=== PATIENT | female | born 1970 | race Caucasian/White ===

== ENCOUNTER 2016-08-03 22:22 | Emergency (ER) ==
[2016-08-03 23:20] LABS: URINE SOURCE CLEAN CATCH
[2016-08-03 23:41] LABS: BILIRUBIN URINE NEGATIVE (NEGATIVE); BLOOD URINE 1+ (NEGATIVE); CLARITY CLEAR (CLEAR); COLOR YELLOW; GLUCOSE URINE NEGATIVE (NEGATIVE); LEUKOCYTES URINE NEGATIVE (NEGATIVE); NITRITE URINE NEGATIVE (NEGATIVE); PH URINE 6.5; PROTEIN URINE TRACE mg/dL (NEGATIVE); UROBILINOGEN URINE NORMAL
--- NOTE | 2016-08-04 01:37 | PROVIDER DOCUMENTATION ---
HPI-Female /OB/Breast - General Chief Complaint: UTI Symptoms Stated Complaint: UTI Time Seen by Provider: 08/04/16 01:31 Source: reports: patient Allergies/Adverse Reactions: Patient Allergies Allergy/AdvReac Type Severity Reaction Status Date / Time prochlorperazine edisylate * Allergy Severe seizure Verified 08/04/16 01:13 [From Compazine] prochlorperazine maleate * Allergy Severe seizure Verified 08/04/16 01:13 [From Compazine] promethazine HCl * Allergy Severe seizure Verified 08/04/16 01:13 [From Phenergan] ketorolac tromethamine * Allergy Intermediate NAUSEA Verified 08/04/16 01:13 [From Toradol] Sulfa (Sulfonamide Allergy Intermediate ITCHING Verified 08/04/16 01:13 Antibiotics) Home Medications: Home Medication List Medication Instructions Recorded Confirmed Last Taken Type Estradiol [Estrace] 1 mg PO DAILY #30 tablet 11/16/14 08/03/16 Rx Lisinopril/Hydrochlorothiazide 37.5 08/03/16 08/02/16 History [Zestoretic 20-25 mg Tablet] Phenazopyridine HCl [Azo Standard] 95 mg 08/03/16 08/03/16 History Nitrofurantoin Monohyd/M-Cryst 100 mg PO BID #20 capsule 08/04/16 Unknown Rx [Macrobid 100 mg Capsule] Phenazopyridine HCl [Pyridium] 200 mg PO ONCE #6 tablet 08/04/16 Unknown Rx - History of Present Illness-Female /OB Does patient report she is ?: No Location of complaint: reports: other (back) Radiation: reports: none Quality of Pain: reports: aching Severity in ED: reports: mild Onset/Duration: reports: 3 days ago Timing: reports: still present Urinary Symptoms: reports: dysuria, frequency Associated Symptoms: reports: denies symptoms Similar Symptoms Previously?: No Recently seen or treated by another doctor?: No Review of Systems - Adult - REVIEW OF SYSTEMS - ADULT Constitutional: denies: chills, fever Eyes: reports: no symptoms reported Ears, Nose, Mouth & Throat: reports: no symptoms reported Cardiovascular: reports: no symptoms reported Respiratory: reports: no symptoms reported Gastrointestinal: reports: no symptoms reported Genitourinary: reports: dysuria, frequency Musculoskeletal: reports: back pain. denies: muscle weakness Integumentary: reports: no symptoms reported Neurological: reports: no symptoms reported Psychiatric: reports: no symptoms reported Endocrine: reports: no symptoms reported Hematologic/Lymphatic: reports: no symptoms reported Allergic/Immunologic: reports: no symptoms reported All Other Systems: Reviewed and Negative Past History - Adult - PAST MEDICAL HISTORY-ADULT Cardiovascular: reports: HTN Psychiatric: reports: anxiety, depression - PRIOR SURGERIES/PROCEDURES Surgical/Procedure History: reports: cholecystectomy, hysterectomy, back/neck ( cervical fusion ) - IMMUNIZATION STATUS Childhood Immunizations: See Nurse Assessment Flu Vaccine: See Nurse Assessment - FAMILY HISTORY Family History: reviewed, not pertinent Physical Exam-General - PHYSICAL EXAM-ADULT Initial Vital Signs Reviewed: Yes - CONSTITUTIONAL General Appearance: appears well, alert, no apparent distress - RESPIRATORY Respiratory: chest non-tender, lungs clear, normal breath sounds - CARDIOVASCULAR Cardiovascular: normal peripheral pulses, regular rate, rhythm, no edema - GASTROINTESTINAL (ABDOMEN) Abdominal Exam: non tender, soft - SKIN Integumentary: normal color, normal turgor, warm/dry - PSYCHIATRIC Psych/Mental Status: normal mood/affect, normal thought content, normal thought process, oriented x 3 Progress - PLAN OF CARE/RESULTS Progress/Plan/Lab Results: plan of care: labs Orders Category Date Time Status URINALYSIS DIPSTICK ONLY PL [URINALYSIS] Stat Lab 08/03/16 22:40 Completed Laboratory Tests 08/03/16 22:40 Urine Source CLEAN CATCH Urine Color YELLOW Urine Clarity CLEAR Urine pH 6.5 Ur Specific [place] 1.020 Urine Protein TRACE A Urine Ketones NEGATIVE Urine Blood 1+ A Urine Nitrite NEGATIVE Urine Bilirubin NEGATIVE Urine Urobilinogen NORMAL Urine WBC NEGATIVE Urine Glucose NEGATIVE Vital Signs - 24 hr 08/03/16 22:38 Temperature 97.9 F Pulse Rate 72 Respiratory 20 Rate Blood Pressure 160/97 O2 Sat by Pulse 97 Oximetry Pt given results and will be d/c home w/ rx to follow up with PCP. Pt verbally understood instructions. PT remained clinically stable throughout the course of the ED stay and will return if symptoms worsen. Departure - Departure Additional Instructions: ED Follow Up Instructions: You have been treated by a care provider in the Emergency Department. These instructions are being provided to you so you can have an understanding of how to care for yourself upon discharge. Upon discharge from the Emergency Department, you are responsible for making arrangements for follow-up care by a physician of your choice. Take all prescribed medications as directed. Return to the Emergency Department immediately for any new or worsening symptoms. You may call the Physician Referral phone number at [phone] to obtain a list of Physicians who are taking new patients. Prescriptions: Nitrofurantoin Monohyd/M-Cryst [Macrobid 100 mg Capsule] 100 mg PO BID #20 capsule Phenazopyridine HCl [Pyridium] 200 mg PO ONCE #6 tablet Referrals: Daniela Piper CRNP [Primary Care Provider] - Forms: Return to School/Parent Work Instructions: Nitrofurantoin tablets or capsules, Phenazopyridine tablets, Urinary Tract Infection, [id number] Attestation - Scribe Verification/Attestation Scribe:: Minerva Can Acting as Scribe for:: Herman Morse Scribe documention review:: This chart was documented by a scribe and accurately reflects the service the provider performed and the decisions made by the provider. Physician Attestation - Physician Attestation I, the provider, attest to the following statement:: Herman Morse Physician documentation Attestation:: This documentation recorded by the scribe accurately reflects the service I personally performed and the decisions made by me.
[2016-08-04] MEDS ORDERED: PYRIDIUM PO ONE (02:04)
[2016-08-04] MEDS ORDERED: MACROBID PO ONE (02:05)
[2016-08-04 02:23] VITALS: BP 180/90
== END 2016-08-04 02:16 | disposition home or self-care (01) ==
LOC: P.ED 22:22
DX: R30.0 Dysuria (principal); R35.0 Frequency of micturition; M54.9 Dorsalgia, unspecified; I10 Essential (primary) hypertension; Z98.1 Arthrodesis status
CPT/HCPCS: 81003; 99283